=== PATIENT | female | born 1970 | race African-American/Black ===

== ENCOUNTER 2017-11-30 13:31 | Inpatient (IN) | payer OTHER ==
[2017-11-30 14:15] VITALS: BMI 18.8
--- NOTE | 2017-11-30 17:30 | HP ---
CIWA Score - CIWA Score Nausea/Vomitin-No Nausea/No Vomiting Muscle Tremors: 2 Anxiety: 4-Mod. Anxious/Guarded Agitation: 4-Moderately Restless Paroxysmal Sweats: 2 Orientation: 1-Uncertain about Date (no distress) Tacttile Disturbances: 2-Mild Itch/Numbness/Burn (both hands) Auditory Disturbances: 0-None Visual Disturbances: 0-None Headache: 0-None Present CIWA-Ar Total Score: 15 Admission ROS S - HPI Chief Complaint: alcohol withdrawal symptoms Allergies/Adverse Reactions: Allergies Allergy/AdvReac Type Severity Reaction Status Date / Time No Known Allergies Allergy Verified 11/30/17 16:43 History of Present Illness: 47 yo female with hx of nicotine, alcohol, and heroin dependence is here seeking detox. Utox positive for marly. Last detox [facility] 2005. PMHX: HTN, Asthma, chronic back pain, depression . Denies suicidal / homicidal ideation or hx of suicide attempts. Denies hx of seizures or blackouts. Exam Limitations: No Limitations - Ebola screening Have you traveled outside of the country in the last 21 days: No Have you had contact with anyone from an Ebola affected area: No Have you been sick,other than usual withdrawal symptoms: No Do you have a fever: No - Review of Systems Constitutional: Chills, Loss of Appetite, Changes in sleep, Unintentional Wgt. Loss (30 lbs) EENT: reports: No Symptoms Reported Respiratory: reports: No Symptoms reported Cardiac: reports: No Symptoms Reported GI: reports: Poor Appetite, Poor Fluid Intake : reports: No Symptoms Reported, Testicular Pain Musculoskeletal: reports: Back Pain Integumentary: reports: No Symptoms Reported Neuro: reports: Numbness (hands) Endocrine: reports: Increased Thirst Hematology: reports: No Symptoms Reported Psychiatric: reports: Orientated x3, Anxious Other Systems: Reviewed and Negative Patient History - Patient Medical History Hx Anemia: No Hx Asthma: Yes (Pt is on MDI.) Hx Chronic Obstructive Pulmonary Disease (COPD): No Hx Cardiac Disorders: No Hx Hypertension: Yes (on meds.) Hx Hypercholesterolemia: No Hx Pacemaker: No HX Cerebrovascular Accident: No Hx Seizures: No Hx Dementia: No Hx Diabetes: No Hx Gastrointestinal Disorders: No Hx Liver Disease: No Hx Genitourinary Disorders: No Hx Sexually Transmitted Disorders: No Hx Renal Disease (ESRD): No Hx Thyroid Disease: No Hx Human Immunodeficiency Virus (HIV): No (Last tested three months ago with negative results ) Hx Hepatitis C: No Hx Depression: Yes Hx Suicide Attempt: No Hx Schizophrenia: No - Patient Surgical History Past Surgical History: Yes Other Surgical History: Pt had a total hysterectomy. - PPD History Previous Implant?: Yes Documented Results: Negative w/o proof Implanted On Prior [facility] Admission?: No PPD to be Administered?: Yes - Reproductive History Patient is a Female of Child Bearing Age (11 -55 yrs old): Yes (hx hystorectomy ) Patient : No - Smoking Cessation Smoking history: Current every day smoker Have you smoked in the past 12 months: Yes Aproximately how many cigarettes per day: 20 Hx Chewing Tobacco Use: No Initiated information on smoking cessation: Yes 'Breaking Loose' booklet given: 11/30/17 - Substance & Tx. History Hx Alcohol Use: Yes Hx Substance Use: Yes Substance Use Type: Alcohol, Cocaine Hx Substance Use Treatment: Yes ([facility] 2005) - Substances Abused Alcohol Route: Oral Frequency: Daily Amount used: 3 6pks beer/ 1 pint vodka Age of first use: 11 Date of Last Use: 11/30/17 Cocaine Route: Smoking Frequency: 3-6 times per week Amount used: $100 and up Age of first use: 14 Date of Last Use: 11/29/17 percocet Route: Oral Frequency: 3-6 times per week Amount used: 1 pill Age of first use: 43 Date of Last Use: 11/29/17 Family Disease History - Family Disease History Family Disease History: Other: Father ( ), Mother ( ) Admission Physical Exam [facility] - Vital Signs Vital Signs: Vital Signs - 24 hr 11/30/17 13:57 Temperature 98.9 F Pulse Rate 75 Respiratory 18 Rate Blood Pressure 114/67 - Physical General Appearance: Yes: Disheveled, Thin, Sweating, Anxious HEENTM: Yes: EOMI, Hearing grossly Normal, Normal ENT Inspection, Normocephalic , Normal Voice, LINDA, Pharynx Normal, Tm's normal Respiratory: Yes: Chest Non-Tender, No Respiratory Distress, No Accessory Muscle Use, Wheezing Neck: Yes: Within Normal Limits Breast: Yes: Breast Exam Deferred Cardiology: Yes: Regular Rhythm, Regular Rate Abdominal: Yes: Normal Bowel Sounds, Non Tender, Flat, Soft Genitourinary: Yes: Within Normal Limits Back: Yes: Normal Inspection Musculoskeletal: Yes: full range of Motion, Gait Steady, Pelvis Stable, Back pain Extremities: Yes: Normal Capillary Refill, Normal Inspection, Normal Range of Motion, Non-Tender Neurological: Yes: adviser sales II-XII NML intact, Fully Oriented, Alert, Motor Strength 5/5, Depressed Affect Integumentary: Yes: Normal Color, Warm, Diaphoresis Lymphatic: Yes: Within Normal Limits - Diagnostic (1) Alcohol dependence with withdrawal Current Visit: Yes Status: Acute Qualifiers: Complication of substance-induced condition: uncomplicated Qualified Code(s ): F10.230 - Alcohol dependence with withdrawal, uncomplicated (2) Nicotine dependence Current Visit: Yes Status: Acute Qualifiers: Nicotine product type: cigarettes (3) Hypertension Current Visit: Yes Status: Chronic Qualifiers: Hypertension type: essential hypertension Qualified Code(s): I10 - Essential (primary) hypertension (4) Asthma Current Visit: Yes Status: Chronic Qualifiers: Asthma severity: mild Asthma persistence: unspecified Asthma complication type: uncomplicated Qualified Code(s): J45.909 - Unspecified asthma, uncomplicated Cleared for Admission [facility] - Detox or Rehab [facility] Level of Care: Medically Managed Detox Regimen/Protocol: Librium [facility] Breath Alcohol Content Breath Alcohol Content: 0.149 Urine Pregancy Test - Result Urine Test Results: Negative- NO Line Present Urine Drug Screen - Results Drug Screen Negative: No Urine Drug Screen Results: MARLY-Cocaine
[2017-11-30] MEDS ORDERED: ALBUTEROL SO4 8 GM HFA INHALER IH PRN (17:38)
[2017-11-30] MEDS ORDERED: ALBUTEROL SO4 2.5/IPRATROPIUM 0.5 INH SOL 3 ML VIAL.NEB. NEB PRN (17:41)
[2017-11-30] MEDS ORDERED: MAGNESIUM CITRATE 300 ML BOTTLE PO PRN (17:51)
[2017-11-30] MEDS ORDERED: hydrOXYzine PAMOATE 50 MG CAPSULE (FP) PO PRN (17:51)
[2017-11-30] MEDS ORDERED: ACETAMINOPHEN 325 MG TABLET (FP) PO PRN (17:51)
[2017-11-30] MEDS ORDERED: P-EPHED 60MG/TRIPROLIDI 2.5MG TABLET PO PRN (17:51)
[2017-11-30] MEDS ORDERED: guaiFENesin/D-METHORPHAN HB 10 ML UNIT-DOSE CUPS PO PRN (17:51)
[2017-11-30] MEDS ORDERED: MAGNESIUM HYDROX 2400MG/30ML ORAL SUSPENSION 30 ML CUP PO PRN (17:51)
[2017-11-30] MEDS ORDERED: IBUPROFEN 400 MG TABLET (FP) PO PRN (17:51)
[2017-11-30] MEDS ORDERED: NICOTINE POLACRILEX 2 MG GUM BC PRN (17:51)
[2017-11-30] MEDS ORDERED: chlordiazePOXIDE HCL 25 MG CAPSULE PO PRN (17:51)
[2017-11-30] MEDS ORDERED: MENTHOL/PHENOL 1 EACH UD MM PRN (17:51)
[2017-11-30] MEDS ORDERED: LOPERAMIDE HCL 2 MG CAPSULE PO PRN (17:51)
[2017-11-30] MEDS ORDERED: MAG HYDROX/AL HYDROX/SIMETH 30 ML UNIT-DOSE CUP PO PRN (17:51)
[2017-11-30] MEDS ORDERED: chlordiazePOXIDE HCL 25 MG CAPSULE PO ONE (18:45)
[2017-11-30] MEDS: THIAMINE HCL 100 MG TABLET (FP) PO SCH (21:27)
[2017-11-30] MEDS: CYCLOBENZAPRINE HCL 10 MG TABLET (FP) PO SCH (21:27)
[2017-11-30] MEDS ORDERED: MELATONIN 5 MG TABLETS PO PRN (22:00)
[2017-11-30] MEDS: chlordiazePOXIDE HCL 25 MG CAPSULE PO SCH (22:19)
[2017-12-01 02:52] LABS: URINE APPEARANCE CLEAR; URINE BILIRUBIN NEGATIVE (<2.0 mg/dL); URINE COLOR COLORLESS; URINE GLUCOSE (UA) NEGATIVE (NEGATIVE); URINE KETONE NEGATIVE (NEGATIVE); URINE LEUK ESTERASE NEGATIVE (NEGATIVE); URINE NITRITE NEGATIVE (NEGATIVE); URINE PROTEIN NEGATIVE (NEGATIVE); URINE UROBILINOGEN NEGATIVE mg/dL (0.2-1.0)
[2017-12-01] MEDS: chlordiazePOXIDE HCL 25 MG CAPSULE PO SCH ×4 (05:57→22:42)
[2017-12-01] MEDS: CYCLOBENZAPRINE HCL 10 MG TABLET (FP) PO SCH ×3 (05:58→22:42)
[2017-12-01 10:16] LABS: HEMATOCRIT 42.9 % (32.4-45.2); MCH 32.8 pg (25.7-33.7); MCHC 32.6 g/dl (32.0-36.0); MEAN CELL VOLUME 100.7 fl (80-96); MEAN PLT VOLUME 9.5 fl (7.5-11.1); PLATELET COUNT 278 K/MM3 (134-434); RBC 4.26 M/mm3 (3.60-5.2); RDW 13.8 % (11.6-15.6)
[2017-12-01] MEDS: amLODIPine BESYLATE 10 MG TABLET (FP) PO SCH (10:38)
[2017-12-01] MEDS: PRENATAL VITAMINS W/ FOLIC ACID TABLET (FP) PO SCH (10:40)
[2017-12-01] MEDS: NICOTINE 14 MG/24 HOURS TOPICAL PATCH TD SCH (10:40)
[2017-12-01 11:18] LABS: ALBUMIN 3.5 g/dl (3.4-5.0); ALK PHOS 69 U/L (45-117); ANION GAP 6 MMOL/L (8-16); BILIRUBIN,TOTAL 0.3 mg/dL (0.2-1); BLOOD UREA NITROGEN 17 mg/dL (7-18); CALCIUM 8.9 mg/dL (8.5-10.1); CHLORIDE 109 mmol/L (98-107); CO2 26 mmol/L (21-32); CREATININE 0.8 mg/dL (0.55-1.3); GLUCOSE,RANDOM 84 mg/dL (74-106); POTASSIUM 4.5 mmol/L (3.5-5.1); SGOT/AST 28 U/L (15-37); SGPT/ALT 22 U/L (13-61); SODIUM 141 mmol/L (136-145); TOT PROT 6.7 g/dl (6.4-8.2)
--- NOTE | 2017-12-01 12:58 | EKG ---
Test Reason : Blood Pressure : / mmHG Vent. Rate : 082 BPM Atrial Rate : 082 BPM P-R Int : 138 ms QRS Dur : 068 ms QT Int : 388 ms P-R-T Axes : 078 067 066 degrees QTc Int : 453 ms NORMAL SINUS RHYTHM RIGHT ATRIAL ENLARGEMENT BORDERLINE ECG NO PREVIOUS ECGS AVAILABLE Confirmed by LAUREEN SALGADO MD ([id number]) on 12/01/2017 12:58:40 PM Referred By: Confirmed By:LAUREEN SALGADO MD
--- NOTE | 2017-12-01 13:01 | PN ---
S CIWA - CIWA Score Nausea/Vomitin-Mild Nausea/No Vomiting Muscle Tremors: 4-Moderate,w/Arms Extend Anxiety: 3 Agitation: 2 Paroxysmal Sweats: 1-Minimal Palms Moist (Mild facial perspiration) Orientation: 0-Oriented Tacttile Disturbances: 0-None Auditory Disturbances: 0-None Visual Disturbances: 0-None Headache: 0-None Present CIWA-Ar Total Score: 11 BHS Progress Note (SOAP) Subjective: c/o sharp/achy back pain. States pain is a "10". C/o mild nausea w/o vomiting and tolerating food. C/o tremors and increased anxiety. Objective: A&O x3. Abd S/NT. Mild facial perspiration. Tremors of hands noted upon extension. Vital Signs 12/01/17 12/01/17 12/01/17 07:59 08:30 09:00 Temperature Pulse Rate 67 89 89 Respiratory 16 Rate Blood Pressure 12/01/17 12/01/17 12/01/17 09:30 09:51 10:00 Temperature 98.2 F Pulse Rate 89 89 77 Respiratory 18 Rate Blood Pressure 137/81 12/01/17 12/01/17 12/01/17 10:30 11:00 11:30 Temperature Pulse Rate 72 81 70 Respiratory Rate Blood Pressure 12/01/17 12/01/17 12/01/17 12:00 12:30 13:00 Temperature Pulse Rate 70 75 80 Respiratory Rate Blood Pressure 12/01/17 12/01/17 12/01/17 13:30 14:00 14:08 Temperature 98.1 F Pulse Rate 80 77 75 Respiratory 18 Rate Blood Pressure 117/73 12/01/17 12/01/17 14:30 15:00 Temperature Pulse Rate 82 76 Respiratory Rate Blood Pressure Lab Results WBC 4.0 K/mm3 (4.0-10.0) 12/01/17 07:00 RBC 4.26 M/mm3 (3.60-5.2) 12/01/17 07:00 Hgb 14.0 GM/dL (10.7-15.3) 12/01/17 07:00 Hct 42.9 % (32.4-45.2) 12/01/17 07:00 MCV 100.7 fl (80-96) H 12/01/17 07:00 MCHC 32.6 g/dl (32.0-36.0) 12/01/17 07:00 RDW 13.8 % (11.6-15.6) 12/01/17 07:00 Plt Count 278 K/MM3 (134-434) 12/01/17 07:00 Sodium 141 mmol/L (136-145) 12/01/17 07:00 Potassium 4.5 mmol/L (3.5-5.1) 12/01/17 07:00 Chloride 109 mmol/L (98-107) H 12/01/17 07:00 Carbon Dioxide 26 mmol/L (21-32) 12/01/17 07:00 Anion Gap 6 MMOL/L (8-16) L 12/01/17 07:00 BUN 17 mg/dL (7-18) 12/01/17 07:00 Creatinine 0.8 mg/dL (0.55-1.3) 12/01/17 07:00 Random Glucose 84 mg/dL (74-106) 12/01/17 07:00 Calcium 8.9 mg/dL (8.5-10.1) 12/01/17 07:00 Labs reviewed. Assessment: Withdrawal symptoms Back pain Plan: Continue detox protocol. Encouraged 2 pitchers of water daily. Encouraged ambulation.
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
[2017-12-01] MEDS: THIAMINE HCL 100 MG TABLET (FP) PO SCH (22:42)
[2017-12-01] MEDS: QUEtiapine FUMARATE 50 MG TABLET PO SCH (22:42)
[2017-12-02] MEDS: chlordiazePOXIDE HCL 25 MG CAPSULE PO SCH ×3 (05:47→22:31)
[2017-12-02] MEDS: CYCLOBENZAPRINE HCL 10 MG TABLET (FP) PO SCH ×3 (05:47→22:31)
[2017-12-02] MEDS ORDERED: cloNIDine HCL 0.1 MG TABLET PO PRN (10:05)
[2017-12-02] MEDS: LIDOCAINE 5% TOPICAL PATCH TP SCH (10:27)
[2017-12-02] MEDS: PRENATAL VITAMINS W/ FOLIC ACID TABLET (FP) PO SCH (10:27)
[2017-12-02] MEDS: amLODIPine BESYLATE 10 MG TABLET (FP) PO SCH (10:27)
[2017-12-02] MEDS: NICOTINE 14 MG/24 HOURS TOPICAL PATCH TD SCH (10:27)
--- NOTE | 2017-12-02 17:16 | PN ---
S CIWA - CIWA Score Nausea/Vomitin-Mild Nausea/No Vomiting Muscle Tremors: 4-Moderate,w/Arms Extend Anxiety: 3 Agitation: 2 Paroxysmal Sweats: 1-Minimal Palms Moist Orientation: 0-Oriented Tacttile Disturbances: 1-Very Mild Itch/Numbness Auditory Disturbances: 0-None Visual Disturbances: 0-None Headache: 0-None Present CIWA-Ar Total Score: 12 BHS Progress Note (SOAP) Subjective: sweat tremor restlessness Objective: 12/02/17 17:17 Vital Signs Temperature 98.1 F 12/02/17 13:51 Pulse Rate 82 12/02/17 13:51 Respiratory Rate 18 12/02/17 13:51 Blood Pressure 113/69 12/02/17 13:51 O2 Sat by Pulse Oximetry (%) Laboratory Last Values WBC 4.0 K/mm3 (4.0-10.0) 12/01/17 07:00 RBC 4.26 M/mm3 (3.60-5.2) 12/01/17 07:00 Hgb 14.0 GM/dL (10.7-15.3) 12/01/17 07:00 Hct 42.9 % (32.4-45.2) 12/01/17 07:00 MCV 100.7 fl (80-96) H 12/01/17 07:00 MCH 32.8 pg (25.7-33.7) 12/01/17 07:00 MCHC 32.6 g/dl (32.0-36.0) 12/01/17 07:00 RDW 13.8 % (11.6-15.6) 12/01/17 07:00 Plt Count 278 K/MM3 (134-434) 12/01/17 07:00 MPV 9.5 fl (7.5-11.1) 12/01/17 07:00 Sodium 141 mmol/L (136-145) 12/01/17 07:00 Potassium 4.5 mmol/L (3.5-5.1) 12/01/17 07:00 Chloride 109 mmol/L (98-107) H 12/01/17 07:00 Carbon Dioxide 26 mmol/L (21-32) 12/01/17 07:00 Anion Gap 6 MMOL/L (8-16) L 12/01/17 07:00 BUN 17 mg/dL (7-18) 12/01/17 07:00 Creatinine 0.8 mg/dL (0.55-1.3) 12/01/17 07:00 Creat Clearance w eGFR > 60 (>60) 12/01/17 07:00 Random Glucose 84 mg/dL (74-106) 12/01/17 07:00 Calcium 8.9 mg/dL (8.5-10.1) 12/01/17 07:00 Total Bilirubin 0.3 mg/dL (0.2-1) 12/01/17 07:00 AST 28 U/L (15-37) 12/01/17 07:00 ALT 22 U/L (13-61) 12/01/17 07:00 Alkaline Phosphatase 69 U/L (45-117) 12/01/17 07:00 Total Protein 6.7 g/dl (6.4-8.2) 12/01/17 07:00 Albumin 3.5 g/dl (3.4-5.0) 12/01/17 07:00 Urine Color Colorless 11/30/17 22:57 Urine Appearance Clear 11/30/17 22:57 Urine pH 5.0 (5.0-8.0) 11/30/17 22:57 Ur Specific [place] 1.002 (1.001-1.035) 11/30/17 22:57 Urine Protein Negative (NEGATIVE) 11/30/17 22:57 Urine Glucose (UA) Negative (NEGATIVE) 11/30/17 22:57 Urine Ketones Negative (NEGATIVE) 11/30/17 22:57 Urine Blood Negative (NEGATIVE) 11/30/17 22:57 Urine Nitrite Negative (NEGATIVE) 11/30/17 22:57 Urine Bilirubin Negative (<2.0 mg/dL) 11/30/17 22:57 Urine Urobilinogen Negative mg/dL (0.2-1.0) 11/30/17 22:57 Ur Leukocyte Esterase Negative (NEGATIVE) 11/30/17 22:57 RPR Titer Nonreactive (NONREACTIVE) 12/01/17 07:00 lab noted Assessment: 12/02/17 17:18 withdrawal sx Plan: continue detox
[2017-12-02] MEDS ORDERED: LIDOCAINE PATCH REMOVAL MC SCH (22:00)
[2017-12-02] MEDS: THIAMINE HCL 100 MG TABLET (FP) PO SCH (22:32)
[2017-12-02] MEDS: QUEtiapine FUMARATE 50 MG TABLET PO SCH (22:32)
[2017-12-02] MEDS: chlordiazePOXIDE 5 MG CAPSULE PO SCH (22:32)
[2017-12-02 22:54] VITALS: TEMP 97.7
[2017-12-03] MEDS: CYCLOBENZAPRINE HCL 10 MG TABLET (FP) PO SCH (05:58)
[2017-12-03] MEDS: chlordiazePOXIDE 5 MG CAPSULE PO SCH (05:58)
[2017-12-03 06:52] VITALS: BP 102/59; PULSE 70
[2017-12-03] MEDS ORDERED: chlordiazePOXIDE HCL 10 MG CAPSULE PO ONE (10:00)
[2017-12-03] MEDS: amLODIPine BESYLATE 10 MG TABLET (FP) PO SCH (11:18)
[2017-12-03] MEDS: LIDOCAINE 5% TOPICAL PATCH TP SCH (11:18)
[2017-12-03] MEDS: NICOTINE 14 MG/24 HOURS TOPICAL PATCH TD SCH (11:18)
[2017-12-03] MEDS: PRENATAL VITAMINS W/ FOLIC ACID TABLET (FP) PO SCH (11:19)
--- NOTE | 2017-12-03 13:36 | DS ---
[facility] Detox Discharge Summary Admission Date: 11/30/17 Discharge Date: 12/03/17 - History Present History: Alcohol Dependence, Cocaine Dependence - Physical Exam Results Vital Signs: Vital Signs Temperature 97.7 F 12/03/17 06:51 Pulse Rate 70 12/03/17 06:51 Respiratory Rate 18 12/03/17 06:51 Blood Pressure 102/59 12/03/17 06:51 O2 Sat by Pulse Oximetry (%) Pertinent Admission Physical Exam Findings: PATIENT IS ALERT AND ORIENTED X 3. AMBULATORY AD RUFINO. MEDICALLY STABLE. DENIES SI/HI. REQUESTED DISCHARGE TODAY. SKIN WARM AND DRY. NEURO +PERRLA, EOMS INTACT , EXT WITHOUT EDEMA. STATES SHE CANNOT CONTACT AND IS CONCERNED ABOUT FAMILY AND PETS. WILL D/C PATIENT TODAY. CHANGE DOSE OF LIBRIUM TO 10MG TODAY PRIOR D/C. MEDICATIONS SENT TO PHARMACY. D/C INSTRUCTIONS PROVIDE. PATIENT TO ARRANGE OUT PATIENT TREATMENT INDEPENDENTLY. ENCOURAGED TO ATTEND GROUP MEETINGS TO PREVENT RELAPSE. Vital Signs Temperature 97.7 F 12/03/17 06:51 Pulse Rate 70 12/03/17 06:51 Respiratory Rate 18 12/03/17 06:51 Blood Pressure 102/59 12/03/17 06:51 O2 Sat by Pulse Oximetry (%) - Treatment Hospital Course: Detox Protocol Followed, Detoxed Safely, Responded well, Discharged Condition Good - Medication Discharge Medications: Ambulatory Orders Quetiapine Fumarate [Seroquel -] 300 mg PO HS 11/30/17 Tramadol HCl [Ultram] 50 mg PO DAILY 11/30/17 Albuterol Sulfate Inhaler - [Ventolin HFA Inhaler -] 2 inh PO Q4H PRN #1 inhaler 12/03/17 Amlodipine Besylate [Norvasc -] 10 mg PO DAILY 14 Days #14 tablet 12/03/17 - AMA Did Patient Leave Against Medical Advice: No
[2017-12-03] MEDS ORDERED: chlordiazePOXIDE HCL 10 MG CAPSULE PO SCH (23:00)
== END 2017-12-03 10:01 | disposition home or self-care (01) | DRG 774 ==
LOC: YASAS 13:31 → Y6N 17:44
PROC: HZ2ZZZZ Detoxification Services for Substance Abuse Treatment (ICD-10-PCS; principal; 2017-11-30)
DX: F10.230 Alcohol dependence with withdrawal, uncomplicated (principal); F14.20 Cocaine dependence, uncomplicated; F17.210 Nicotine dependence, cigarettes, uncomplicated; F19.24 Other psychoactive substance dependence with psychoactive substance-induced mood disorder; F32.9 Major depressive disorder, single episode, unspecified; I10 Essential (primary) hypertension; J45.909 Unspecified asthma, uncomplicated
CPT/HCPCS: 36415; 80053; 81003; 85027; 86593; 93005; 93010

== ENCOUNTER 2018-01-03 15:05 | Inpatient (IN) | payer OTHER ==
[2018-01-03 18:33] VITALS: BMI 17.6
--- NOTE | 2018-01-03 21:40 | HP ---
CIWA Score - CIWA Score Nausea/Vomitin Muscle Tremors: 4-Moderate,w/Arms Extend Anxiety: 4-Mod. Anxious/Guarded Agitation: 4-Moderately Restless Paroxysmal Sweats: 1-Minimal Palms Moist Orientation: 0-Oriented Tacttile Disturbances: 0-None Auditory Disturbances: 0-None Visual Disturbances: 0-None Headache: 0-None Present CIWA-Ar Total Score: 16 Admission ROS S - HPI Chief Complaint: Alcohol withdrawal symptoms Allergies/Adverse Reactions: Allergies Allergy/AdvReac Type Severity Reaction Status Date / Time tomato Allergy Severe Itching Verified 01/03/18 19:47 History of Present Illness: 47 years old male with a long history of alcohol dependence is seeking admission to detox. Patient was in detox 11/30-12/03/2017. She reports insignificant period of sobriety and medical history of asthma, hypertension, anemia, depression and anxiety. She denies suicide attempt and suicidal ideation at this time. - Ebola screening Have you traveled outside of the country in the last 21 days: No Have you had contact with anyone from an Ebola affected area: No Have you been sick,other than usual withdrawal symptoms: No - Review of Systems Constitutional: Chills, Loss of Appetite, Malaise, Night Sweats, Changes in sleep EENT: reports: Sinus Pressure Respiratory: reports: Cough Cardiac: reports: No Symptoms Reported GI: reports: Poor Appetite, Poor Fluid Intake, Abdominal cramping : reports: No Symptoms Reported Musculoskeletal: reports: Back Pain, Muscle Pain Integumentary: reports: Dryness, Flushing Neuro: reports: Tremors Hematology: reports: Anemia Psychiatric: reports: Orientated x3, Anxious, Depressed Other Systems: Reviewed and Negative Patient History - Patient Medical History Hx Anemia: Yes (Vitamins, B12) Hx Asthma: Yes (Pt is on MDI.) Hx Chronic Obstructive Pulmonary Disease (COPD): No Hx Cancer: No Hx Cardiac Disorders: No Hx Congestive Heart Failure: No Hx Hypertension: Yes (Amlodipine) Hx Hypercholesterolemia: No Hx Pacemaker: No HX Cerebrovascular Accident: No Hx Seizures: No Hx Dementia: No Hx Diabetes: No Hx Gastrointestinal Disorders: No Hx Liver Disease: No Hx Genitourinary Disorders: No Hx Sexually Transmitted Disorders: No Hx Renal Disease (ESRD): No Hx Thyroid Disease: No Hx Human Immunodeficiency Virus (HIV): No (Last tested three months ago with negative results ) Hx Hepatitis C: No Hx Depression: Yes Hx Suicide Attempt: No (Denies suicide attempt/suicidal ideation at this time) Hx Schizophrenia: No Other Medical History: Anxiety - Not on omedication - Patient Surgical History Past Surgical History: Yes Hx Neurologic Surgery: No Hx Cataract Extraction: No Hx Cardiac Surgery: No Hx Lung Surgery: No Hx Breast Surgery: No Hx Breast Biopsy: No Hx Abdominal Surgery: No Hx Appendectomy: No Hx Cholecystectomy: No Hx Genitourinary Surgery: No Hx Section: No Hx Orthopedic Surgery: No Hx Hysterectomy: Yes (2013) Other Surgical History: Pt had a total hysterectomy. Anesthesia Reaction: No - PPD History Previous Implant?: Yes Documented Results: Negative w/proof Date: 12/03/17 PPD to be Administered?: No - Reproductive History Patient is a Female of Child Bearing Age (11 -55 yrs old): No LMP comment: Hystrectomy 2013 - Smoking Cessation Smoking history: Current every day smoker Have you smoked in the past 12 months: Yes Aproximately how many cigarettes per day: 20 Hx Chewing Tobacco Use: No Initiated information on smoking cessation: Yes 'Breaking Loose' booklet given: 01/03/18 - Substance & Tx. History Hx Alcohol Use: Yes Hx Substance Use: Yes Substance Use Type: Alcohol, Cocaine Hx Substance Use Treatment: Yes ([facility]) - Substances Abused Heroin Route: Inhalation Frequency: Daily Amount used: 3 BAGS Age of first use: 15 Date of Last Use: 01/02/18 Cocaine Route: Inhalation Frequency: Daily Amount used: 6 BAGS Age of first use: 15 Date of Last Use: 01/02/18 Alcohol Route: Oral Frequency: Daily Amount used: liquor- 2 pints, beer- 1 six pack Age of first use: 15 Date of Last Use: 01/02/18 Family Disease History - Family Disease History Family Disease History: Other: Father ( ), Mother ( ) Admission Physical Exam S - Vital Signs Vital Signs: Vital Signs - 24 hr 01/03/18 18:30 Temperature 97.8 F Pulse Rate 59 L Respiratory 18 Rate Blood Pressure 130/66 - Physical General Appearance: Yes: Moderate Distress, Tremorous, Irritable, Anxious HEENTM: Yes: EOMI, Normocephalic, Normal Voice, LINDA Respiratory: Yes: Lungs Clear, Normal Breath Sounds, No Respiratory Distress Neck: Yes: Supple Breast: Yes: Breast Exam Deferred Cardiology: Yes: Regular Rhythm, Regular Rate Abdominal: Yes: Normal Bowel Sounds Genitourinary: Yes: Within Normal Limits Back: Yes: Normal Inspection Musculoskeletal: Yes: Muscle Pain Extremities: Yes: Tremors Neurological: Yes: aws solution architect II-XII NML intact, Alert, Normal Mood/Affect Integumentary: Yes: Warm Lymphatic: Yes: Within Normal Limits - Diagnostic (1) Alcohol dependence with uncomplicated withdrawal Current Visit: Yes Status: Chronic (2) Asthma Current Visit: Yes Status: Chronic Qualifiers: Asthma severity: mild Asthma persistence: unspecified Asthma complication type: uncomplicated Qualified Code(s): J45.909 - Unspecified asthma, uncomplicated (3) Cocaine dependence Current Visit: Yes Status: Chronic Qualifiers: Substance use status: uncomplicated Qualified Code(s): F14.20 - Cocaine dependence, uncomplicated (4) Hypertension Current Visit: Yes Status: Chronic Qualifiers: Hypertension type: essential hypertension Qualified Code(s): I10 - Essential (primary) hypertension (5) Anemia Current Visit: Yes Status: Chronic Qualifiers: Anemia type: B12 deficiency (6) Depression Current Visit: Yes Status: Chronic Qualifiers: Major depression recurrence: unspecified whether recurrent (7) Anxiety Current Visit: Yes Status: Chronic BHS Breath Alcohol Content Breath Alcohol Content: 0.048 Urine Pregancy Test - Result Urine Test Results: Negative- NO Line Present Urine Drug Screen - Results Drug Screen Negative: No Urine Drug Screen Results: TOMMY-Cocaine
[2018-01-03] MEDS ORDERED: MAGNESIUM CITRATE 300 ML BOTTLE PO PRN (21:49)
[2018-01-03] MEDS ORDERED: LOPERAMIDE HCL 2 MG CAPSULE PO PRN (21:49)
[2018-01-03] MEDS ORDERED: chlordiazePOXIDE HCL 25 MG CAPSULE PO PRN (21:49)
[2018-01-03] MEDS ORDERED: MENTHOL/PHENOL 1 EACH UD MM PRN (21:49)
[2018-01-03] MEDS ORDERED: NICOTINE POLACRILEX 2 MG GUM BC PRN (21:49)
[2018-01-03] MEDS ORDERED: ACETAMINOPHEN 325 MG TABLET (FP) PO PRN (21:49)
[2018-01-03] MEDS ORDERED: MAGNESIUM HYDROX 2400MG/30ML ORAL SUSPENSION 30 ML CUP PO PRN (21:49)
[2018-01-03] MEDS ORDERED: P-EPHED 60MG/TRIPROLIDI 2.5MG TABLET PO PRN (21:49)
[2018-01-03] MEDS ORDERED: ALBUTEROL SO4 8 GM HFA INHALER IH PRN (21:50)
[2018-01-03] MEDS ORDERED: MELATONIN 5 MG TABLETS PO PRN (22:00)
[2018-01-03] MEDS: chlordiazePOXIDE HCL 25 MG CAPSULE PO SCH (23:11)
[2018-01-03] MEDS: THIAMINE HCL 100 MG TABLET (FP) PO SCH (23:11)
[2018-01-03] MEDS: guaiFENesin/D-METHORPHAN HB 10 ML UNIT-DOSE CUPS PO PRN (23:16)
[2018-01-03] MEDS: IBUPROFEN 400 MG TABLET (FP) PO PRN (23:16)
[2018-01-04] MEDS: chlordiazePOXIDE HCL 25 MG CAPSULE PO SCH ×4 (06:14→23:15)
[2018-01-04] MEDS: guaiFENesin/D-METHORPHAN HB 10 ML UNIT-DOSE CUPS PO PRN ×2 (06:15→18:29)
[2018-01-04 10:23] LABS: HEMOGLOBIN 14.1 GM/dL (10.7-15.3); MCHC 32.7 g/dl (32.0-36.0); MEAN CELL VOLUME 100.7 fl (80-96); MEAN PLT VOLUME 9.8 fl (7.5-11.1); PLATELET COUNT 303 K/MM3 (134-434); RBC 4.27 M/mm3 (3.60-5.2); RDW 13.3 % (11.6-15.6); WHITE BLOOD COUNT 6.1 K/mm3 (4.0-10.0)
[2018-01-04] MEDS: PRENATAL VITAMINS W/ FOLIC ACID TABLET (FP) PO SCH (10:28)
[2018-01-04] MEDS: amLODIPine BESYLATE 10 MG TABLET (FP) PO SCH (10:28)
[2018-01-04] MEDS: NICOTINE 14 MG/24 HOURS TOPICAL PATCH TD SCH (10:29)
[2018-01-04 11:01] LABS: ALBUMIN 3.2 g/dl (3.4-5.0); ALK PHOS 88 U/L (45-117); ANION GAP 8 MMOL/L (8-16); BILIRUBIN,TOTAL 0.3 mg/dL (0.2-1); BLOOD UREA NITROGEN 19 mg/dL (7-18); CALCIUM 8.5 mg/dL (8.5-10.1); CHLORIDE 105 mmol/L (98-107); CO2 28 mmol/L (21-32); CREATININE 0.7 mg/dL (0.55-1.3); GLUCOSE,RANDOM 102 mg/dL (74-106); SGOT/AST 19 U/L (15-37); SGPT/ALT 21 U/L (13-61); SODIUM 141 mmol/L (136-145); TOT PROT 6.2 g/dl (6.4-8.2)
--- NOTE | 2018-01-04 11:24 | CONSULT ---
[facility] Psychiatric Consult - Data Date of interview: 01/04/18 Admission source: [facility] Identifying data: Patient is a 47 year old single female, mother of one, domiciled, unemployed, and is supported by [employer]. This is one of multiple admissions for patient. Patient admitted to for opiate dependence. Substance Abuse History: Smoking Cessation. Smoking history: Current every day smoker. Have you smoked in the past 12 months: Yes. Aproximately how many cigarettes per day: 20. Hx Chewing Tobacco Use: No. Initiated information on smoking cessation: Yes. 'Breaking Loose' booklet given: 01/03/18. - Substance & Tx. History. Hx Alcohol Use: Yes. Hx Substance Use: Yes. Substance Use Type : Alcohol, Cocaine. Hx Substance Use Treatment: Yes ([facility]). - Substances Abused. Heroin. Route: Inhalation. Frequency: Daily. Amount used: 3 BAGS. Age of first use: 15. Date of Last Use: 01/02/18. Cocaine. Route: Inhalation. Frequency: Daily. Amount used: 6 BAGS. Age of first use: 15. Date of Last Use: 01/02/18. Alcohol. Route: Oral. Frequency: Daily. Amount used: liquor- 2 pints, beer- 1 six pack. Age of first use: 15. Date of Last Use: 01/02/18 Medical History: Anemia, asthma, hypertension, total hysterectomy Psychiatric History: Patient denies h/o psychiatric hospitalizations and suicide attempt. She denies recent outpatient psychiatric care. Patient's Psychotrophic medications are currently prescribed by Primary care physician. As per pharmacy claims a prescription of mirtazapine 15mg was electronically sent to patient's pharmacy on 12/26/17 although patient denies taking medication. She reports h/o accepting seroquel 300mg but has not taken that dose in several months. Patient seen by commercial insurance underwriter in November and was prescribed seroquel 50mg. At present, patient reports feeling well but reports difficulty sleeping. Physical/Sexual Abuse/Trauma History: denies. Mental Status Exam - Mental Status Exam Alert and Oriented to: Time, Place, Person Cognitive Function: Good Patient Appearance: Well Groomed Mood: Euthymic Affect: Mood Congruent Patient Behavior: Cooperative Speech Pattern: Appropriate Voice Loudness: Moderately Soft/Quiet Thought Process: Intact, Goal Oriented Thought Disorder: Not Present Hallucinations: Denies Suicidal Ideation: Denies Homicidal Ideation: Denies Insight/Judgement: Poor Sleep: Poorly Appetite: Fair Muscle strength/Tone: Normal Gait/Station: Normal Psychiatric Findings - Problem List ([place] 1, 2,3) (1) Substance-induced sleep disorder Current Visit: Yes Status: Acute (2) Alcohol dependence with uncomplicated withdrawal Current Visit: Yes Status: Acute (3) Cocaine dependence Current Visit: Yes Status: Chronic Qualifiers: Substance use status: uncomplicated Qualified Code(s): F14.20 - Cocaine dependence, uncomplicated (4) Substance induced mood disorder Current Visit: Yes Status: Acute - Initial Treatment Plan Initial Treatment Plan: Psychoeducation provided. Detoxification in progress. Will order Seroquel 50mg qhs. Benefits and side effects discussed. Verbal consent given.
--- NOTE | 2018-01-04 11:44 | PN ---
S CIWA - CIWA Score Nausea/Vomitin-No Nausea/No Vomiting Muscle Tremors: None Anxiety: 4-Mod. Anxious/Guarded Agitation: 3 Paroxysmal Sweats: No Perspiration Orientation: 0-Oriented Tacttile Disturbances: 0-None Auditory Disturbances: 0-None Visual Disturbances: 0-None Headache: 2-Mild CIWA-Ar Total Score: 9 BHS Progress Note (SOAP) Subjective: PATIENT C/O FEELING TIRED AND HEADACHE. Objective: 01/04/18 11:43 Laboratory Tests 01/04/18 01/04/18 07:00 07:00 WBC 6.1 RBC 4.27 Hgb 14.1 Hct 43.0 MCV 100.7 H MCH 33.0 MCHC 32.7 RDW 13.3 Plt Count 303 MPV 9.8 Sodium 141 Potassium 4.0 Chloride 105 Carbon Dioxide 28 Anion Gap 8 BUN 19 H Creatinine 0.7 Creat Clearance w eGFR > 60 Random Glucose 102 Calcium 8.5 Total Bilirubin 0.3 AST 19 ALT 21 Alkaline Phosphatase 88 Total Protein 6.2 L Albumin 3.2 L Vital Signs Temperature 98.9 F 01/04/18 09:41 Pulse Rate 75 01/04/18 09:41 Respiratory Rate 19 01/04/18 09:41 Blood Pressure 152/93 01/04/18 09:41 O2 Sat by Pulse Oximetry (%) SKIN WARM AND DRY ALERT AND ORIENTED X 3 ANXIOUS AND RESTLESS, PACING IN HALLWAY DURING MEDICATION ADMINISTRATION EXT FULL ROM, AMB AD RUFINO Assessment: 01/04/18 11:44 WITHDRAWAL SX Plan: CONTINUE DETOX ORDERED ENCOURAGE ORAL FLUIDS CONTINUE TO MONITOR CLINICALLY
--- NOTE | 2018-01-04 12:59 | EKG ---
Test Reason : Blood Pressure : / mmHG Vent. Rate : 070 BPM Atrial Rate : 070 BPM P-R Int : 148 ms QRS Dur : 074 ms QT Int : 398 ms P-R-T Axes : 078 071 061 degrees QTc Int : 429 ms NORMAL SINUS RHYTHM WITH SINUS ARRHYTHMIA RIGHT ATRIAL ENLARGEMENT BORDERLINE ECG Confirmed by MD PAIGE, MAEVE ([id number]) on 01/04/2018 12:59:18 PM Referred By: Confirmed By:MAEVE GIBSON MD
[2018-01-04 16:19] LABS: URINE APPEARANCE SLCLOUDY; URINE BILIRUBIN NEGATIVE (<2.0 mg/dL); URINE COLOR LTYELLOW; URINE GLUCOSE (UA) NEGATIVE (NEGATIVE); URINE KETONE NEGATIVE (NEGATIVE); URINE LEUK ESTERASE NEGATIVE (NEGATIVE); URINE NITRITE NEGATIVE (NEGATIVE); URINE PROTEIN NEGATIVE (NEGATIVE); URINE UROBILINOGEN NEGATIVE mg/dL (0.2-1.0)
[2018-01-04] MEDS: IBUPROFEN 400 MG TABLET (FP) PO PRN (18:29)
[2018-01-04] MEDS: MAG HYDROX/AL HYDROX/SIMETH 30 ML UNIT-DOSE CUP PO PRN (18:38)
[2018-01-04] MEDS: QUEtiapine FUMARATE 50 MG TABLET PO SCH (23:15)
[2018-01-04] MEDS: THIAMINE HCL 100 MG TABLET (FP) PO SCH (23:15)
[2018-01-05] MEDS: chlordiazePOXIDE HCL 25 MG CAPSULE PO SCH ×3 (06:30→18:19)
--- NOTE | 2018-01-05 10:54 | PN ---
S CIWA - CIWA Score Nausea/Vomitin Muscle Tremors: 2 Anxiety: 2 Agitation: 1-Slight > Activity Paroxysmal Sweats: 1-Minimal Palms Moist Orientation: 0-Oriented Tacttile Disturbances: 1-Very Mild Itch/Numbness Auditory Disturbances: 0-None Visual Disturbances: 0-None Headache: 0-None Present CIWA-Ar Total Score: 9 BHS Progress Note (SOAP) Subjective: interrupted sleep, sweats, shakes , dry skin but better than on admission Objective: 01/05/18 10:52 Vital Signs Temperature 99.1 F 01/05/18 09:24 Pulse Rate 85 01/05/18 09:24 Respiratory Rate 16 01/05/18 09:24 Blood Pressure 131/81 01/05/18 09:24 O2 Sat by Pulse Oximetry (%) Laboratory Tests 01/04/18 01/04/18 01/04/18 07:00 07:00 07:00 WBC 6.1 RBC 4.27 Hgb 14.1 Hct 43.0 MCV 100.7 H MCH 33.0 MCHC 32.7 RDW 13.3 Plt Count 303 MPV 9.8 Sodium 141 Potassium 4.0 Chloride 105 Carbon Dioxide 28 Anion Gap 8 BUN 19 H Creatinine 0.7 Creat Clearance w eGFR > 60 Random Glucose 102 Calcium 8.5 Total Bilirubin 0.3 AST 19 ALT 21 Alkaline Phosphatase 88 Total Protein 6.2 L Albumin 3.2 L Urine Color Urine Appearance Urine pH Ur Specific [place] Urine Protein Urine Glucose (UA) Urine Ketones Urine Blood Urine Nitrite Urine Bilirubin Urine Urobilinogen Ur Leukocyte Esterase RPR Titer Nonreactive 01/04/18 11:45 WBC RBC Hgb Hct MCV MCH MCHC RDW Plt Count MPV Sodium Potassium Chloride Carbon Dioxide Anion Gap BUN Creatinine Creat Clearance w eGFR Random Glucose Calcium Total Bilirubin AST ALT Alkaline Phosphatase Total Protein Albumin Urine Color Ltyellow Urine Appearance Slcloudy Urine pH 6.0 Ur Specific [place] 1.019 Urine Protein Negative Urine Glucose (UA) Negative Urine Ketones Negative Urine Blood Negative Urine Nitrite Negative Urine Bilirubin Negative Urine Urobilinogen Negative Ur Leukocyte Esterase Negative RPR Titer pt aox3 in nad ambulating Assessment: 01/05/18 10:52 withdrawal sx's dry skin Plan: cont. detox increase fluids aveeno soap lachydrin lotion ensure
[2018-01-05] MEDS: amLODIPine BESYLATE 10 MG TABLET (FP) PO SCH (11:12)
[2018-01-05] MEDS: PRENATAL VITAMINS W/ FOLIC ACID TABLET (FP) PO SCH (11:12)
[2018-01-05] MEDS: NICOTINE 14 MG/24 HOURS TOPICAL PATCH TD SCH (11:12)
[2018-01-05] MEDS: guaiFENesin/D-METHORPHAN HB 10 ML UNIT-DOSE CUPS PO PRN ×2 (11:13→22:34)
[2018-01-05] MEDS: IBUPROFEN 400 MG TABLET (FP) PO PRN ×2 (11:17→22:32)
[2018-01-05] MEDS: SIMETHICONE 80 MG TAB.CHEW (FP) PO PRN (17:56)
[2018-01-05] MEDS: chlordiazePOXIDE 5 MG CAPSULE PO SCH (22:28)
[2018-01-05] MEDS: QUEtiapine FUMARATE 50 MG TABLET PO SCH (22:29)
[2018-01-05] MEDS: THIAMINE HCL 100 MG TABLET (FP) PO SCH (22:29)
[2018-01-06] MEDS: chlordiazePOXIDE 5 MG CAPSULE PO SCH ×3 (06:15→17:22)
[2018-01-06] MEDS: NICOTINE 14 MG/24 HOURS TOPICAL PATCH TD SCH (10:00)
[2018-01-06] MEDS: PRENATAL VITAMINS W/ FOLIC ACID TABLET (FP) PO SCH (10:06)
[2018-01-06] MEDS: SIMETHICONE 80 MG TAB.CHEW (FP) PO PRN (10:06)
[2018-01-06] MEDS: amLODIPine BESYLATE 10 MG TABLET (FP) PO SCH (10:06)
[2018-01-06] MEDS ORDERED: COLLOIDAL OATMEAL 1 BAR EACH TP PRN (10:09)
--- NOTE | 2018-01-06 10:56 | PN ---
BHS Progress Note (SOAP) Subjective: no tremor less sweat feeling better sleep better at night Objective: 01/06/18 10:56 Vital Signs Temperature 98.4 F 01/06/18 09:35 Pulse Rate 87 01/06/18 09:35 Respiratory Rate 20 01/06/18 09:35 Blood Pressure 127/78 01/06/18 09:35 O2 Sat by Pulse Oximetry (%) Laboratory Last Values WBC 6.1 K/mm3 (4.0-10.0) 01/04/18 07:00 RBC 4.27 M/mm3 (3.60-5.2) 01/04/18 07:00 Hgb 14.1 GM/dL (10.7-15.3) 01/04/18 07:00 Hct 43.0 % (32.4-45.2) 01/04/18 07:00 MCV 100.7 fl (80-96) H 01/04/18 07:00 MCH 33.0 pg (25.7-33.7) 01/04/18 07:00 MCHC 32.7 g/dl (32.0-36.0) 01/04/18 07:00 RDW 13.3 % (11.6-15.6) 01/04/18 07:00 Plt Count 303 K/MM3 (134-434) 01/04/18 07:00 MPV 9.8 fl (7.5-11.1) 01/04/18 07:00 Sodium 141 mmol/L (136-145) 01/04/18 07:00 Potassium 4.0 mmol/L (3.5-5.1) 01/04/18 07:00 Chloride 105 mmol/L (98-107) 01/04/18 07:00 Carbon Dioxide 28 mmol/L (21-32) 01/04/18 07:00 Anion Gap 8 MMOL/L (8-16) 01/04/18 07:00 BUN 19 mg/dL (7-18) H 01/04/18 07:00 Creatinine 0.7 mg/dL (0.55-1.3) 01/04/18 07:00 Creat Clearance w eGFR > 60 (>60) 01/04/18 07:00 Random Glucose 102 mg/dL (74-106) 01/04/18 07:00 Calcium 8.5 mg/dL (8.5-10.1) 01/04/18 07:00 Total Bilirubin 0.3 mg/dL (0.2-1) 01/04/18 07:00 AST 19 U/L (15-37) 01/04/18 07:00 ALT 21 U/L (13-61) 01/04/18 07:00 Alkaline Phosphatase 88 U/L (45-117) 01/04/18 07:00 Total Protein 6.2 g/dl (6.4-8.2) L 01/04/18 07:00 Albumin 3.2 g/dl (3.4-5.0) L 01/04/18 07:00 Urine Color Ltyellow 01/04/18 11:45 Urine Appearance Slcloudy 01/04/18 11:45 Urine pH 6.0 (5.0-8.0) 01/04/18 11:45 Ur Specific [place] 1.019 (1.010-1.035) 01/04/18 11:45 Urine Protein Negative (NEGATIVE) 01/04/18 11:45 Urine Glucose (UA) Negative (NEGATIVE) 01/04/18 11:45 Urine Ketones Negative (NEGATIVE) 01/04/18 11:45 Urine Blood Negative (NEGATIVE) 01/04/18 11:45 Urine Nitrite Negative (NEGATIVE) 01/04/18 11:45 Urine Bilirubin Negative (<2.0 mg/dL) 01/04/18 11:45 Urine Urobilinogen Negative mg/dL (0.2-1.0) 01/04/18 11:45 Ur Leukocyte Esterase Negative (NEGATIVE) 01/04/18 11:45 RPR Titer Nonreactive (NONREACTIVE) 01/04/18 07:00 lab noted Assessment: 01/06/18 10:56 mild withdrawal sx Plan: medically supervised detox
[2018-01-06] MEDS: guaiFENesin/D-METHORPHAN HB 10 ML UNIT-DOSE CUPS PO PRN ×2 (11:24→17:24)
[2018-01-06] MEDS ORDERED: diphenhydrAMINE HCL 25 MG CAPSULE (FP) PO PRN (17:12)
--- NOTE | 2018-01-06 17:13 | PN ---
S Progress Note Note: Vital Signs Temperature 98.7 F 01/06/18 17:02 Pulse Rate 83 01/06/18 17:02 Respiratory Rate 19 01/06/18 17:02 Blood Pressure 111/67 01/06/18 17:02 O2 Sat by Pulse Oximetry (%) Patient reprots allergies to tomato reports eating something with tomato and feels itchy one time order Benadryl PO 50 mg
[2018-01-06] MEDS ORDERED: diphenhydrAMINE HCL 25 MG CAPSULE (FP) PO ONE ×2 (17:21→17:45)
[2018-01-06] MEDS: IBUPROFEN 400 MG TABLET (FP) PO PRN (17:25)
[2018-01-06] MEDS ORDERED: diphenhydrAMINE HCL 50 MG CAPSULE PO ONE (17:45)
[2018-01-06] MEDS: MAG HYDROX/AL HYDROX/SIMETH 30 ML UNIT-DOSE CUP PO PRN (17:55)
[2018-01-06] MEDS ORDERED: MINERAL OIL/PETROLAT/WATER TOPICAL CREAM 113 GM JAR TP SCH (22:00)
[2018-01-06] MEDS: THIAMINE HCL 100 MG TABLET (FP) PO SCH (22:11)
[2018-01-06] MEDS: chlordiazePOXIDE HCL 10 MG CAPSULE PO SCH (22:11)
[2018-01-06] MEDS: QUEtiapine FUMARATE 50 MG TABLET PO SCH (22:11)
[2018-01-07 06:16] VITALS: PULSE 89
[2018-01-07] MEDS: chlordiazePOXIDE HCL 10 MG CAPSULE PO SCH (06:37)
[2018-01-07] MEDS: guaiFENesin/D-METHORPHAN HB 10 ML UNIT-DOSE CUPS PO PRN (06:38)
--- NOTE | 2018-01-07 09:04 | DS ---
[facility] Detox Discharge Summary Admission Date: 01/03/18 Discharge Date: 01/07/18 - History Present History: Alcohol Dependence, Cocaine Dependence - Physical Exam Results Vital Signs: Vital Signs Temperature 97.3 F L 01/07/18 06:00 Pulse Rate 89 01/07/18 06:00 Respiratory Rate 16 01/07/18 06:00 Blood Pressure 118/80 01/07/18 06:00 O2 Sat by Pulse Oximetry (%) - Treatment Hospital Course: Detox Protocol Followed, Detoxed Safely, Responded well, Discharged Condition Good, Rehab Referral Accepted - Medication Discharge Medications: Ambulatory Orders Quetiapine Fumarate [Seroquel -] 300 mg PO HS 11/30/17 Tramadol HCl [Ultram] 50 mg PO DAILY 11/30/17 Albuterol Sulfate Inhaler - [Ventolin HFA Inhaler -] 2 inh PO Q4H PRN #1 inhaler 12/03/17 Albuterol Sulfate Inhaler - [Ventolin HFA Inhaler -] 2 puff IH Q4H PRN #1 inhaler 01/06/18 Amlodipine Besylate [Norvasc -] 10 mg PO DAILY 14 Days #14 tablet 01/06/18 - Diagnosis (1) Substance induced mood disorder Current Visit: Yes Status: Acute (2) Substance-induced sleep disorder Current Visit: Yes Status: Acute (3) Alcohol dependence with uncomplicated withdrawal Current Visit: Yes Status: Chronic (4) Anemia Current Visit: Yes Status: Chronic Qualifiers: Anemia type: B12 deficiency (5) Anxiety Current Visit: Yes Status: Chronic (6) Asthma Current Visit: Yes Status: Chronic Qualifiers: Asthma severity: mild Asthma persistence: unspecified Asthma complication type: uncomplicated Qualified Code(s): J45.909 - Unspecified asthma, uncomplicated (7) Cocaine dependence Current Visit: Yes Status: Chronic Qualifiers: Substance use status: uncomplicated Qualified Code(s): F14.20 - Cocaine dependence, uncomplicated (8) Depression Current Visit: Yes Status: Chronic Qualifiers: Major depression recurrence: unspecified whether recurrent (9) Dry skin dermatitis Current Visit: Yes Status: Chronic (10) Hypertension Current Visit: Yes Status: Chronic Qualifiers: Hypertension type: essential hypertension Qualified Code(s): I10 - Essential (primary) hypertension (11) Nicotine dependence Current Visit: Yes Status: Acute Qualifiers: Nicotine product type: cigarettes Substance use status: uncomplicated Qualified Code(s): F17.210 - Nicotine dependence, cigarettes, uncomplicated (12) Alcohol dependence with withdrawal Current Visit: No Status: Resolved Qualifiers: Complication of substance-induced condition: uncomplicated Qualified Code(s ): F10.230 - Alcohol dependence with withdrawal, uncomplicated - AMA Did Patient Leave Against Medical Advice: No (referred to [facility])
[2018-01-07 09:12] VITALS: BP 133/88; TEMP 97.9
[2018-01-07] MEDS: PRENATAL VITAMINS W/ FOLIC ACID TABLET (FP) PO SCH (10:07)
[2018-01-07] MEDS: amLODIPine BESYLATE 10 MG TABLET (FP) PO SCH (10:07)
[2018-01-07] MEDS: NICOTINE 14 MG/24 HOURS TOPICAL PATCH TD SCH (10:10)
== END 2018-01-07 10:31 | disposition home or self-care (01) | DRG 774 ==
LOC: YASAS 15:05 → Y6N 20:17
PROC: HZ2ZZZZ Detoxification Services for Substance Abuse Treatment (ICD-10-PCS; principal; 2018-01-03)
DX: F10.230 Alcohol dependence with withdrawal, uncomplicated (principal); F14.20 Cocaine dependence, uncomplicated; F17.210 Nicotine dependence, cigarettes, uncomplicated; F19.24 Other psychoactive substance dependence with psychoactive substance-induced mood disorder; F19.282 Other psychoactive substance dependence with psychoactive substance-induced sleep disorder; F32.9 Major depressive disorder, single episode, unspecified; F41.9 Anxiety disorder, unspecified; I10 Essential (primary) hypertension; D51.3 Other dietary vitamin B12 deficiency anemia; L85.3 Xerosis cutis
CPT/HCPCS: 36415; 80053; 81003; 85027; 86593; 93005; 93010